=== PATIENT | female | born 1985 | race American Indian/Alaskan Native ===

== ENCOUNTER 2018-12-27 21:29 | Emergency (ER) | payer MEDICAID ==
[2018-12-27 22:47] VITALS: BP 132/72
--- NOTE | 2018-12-27 22:48 | Event Note ---
ED Screening Note Date of service: 12/27/18 Time: 22:46 ED Screening Note: 33 y/o female comes in for dysuria, frequency and urgency. diagnostic orders/clinical plan/treatment(s) is/are subject to change based on patients health status, clinical progression and re-assessment by fellow clinical providers in the ED. Further treatment and workup at subsequent clinical providers discretion. Patient/guardian urged not to elope from the ED as their condition may be serious if not clinically assessed and managed. Initial orders include:
[2018-12-28 01:45] LABS: Bacteria,Urine 4+ /HPF (Negative); Bilirubin,Urine NEG (Negative); Blood,Urine NEG (Negative); Color,Urine Yellow (Yellow); Mucus,Urine 3+ /HPF; Protein,Urine <15 mg/dL mg/dL (Negative); Sperm,Urine FEW /HPF (NP); Urobilinogen,Urine < 2.0 mg/dL (<2.0)
== END 2018-12-28 01:14 | disposition left against medical advice (07) ==
LOC: ED 21:29
DX: R31.9 Hematuria, unspecified (principal); Z53.21 Procedure and treatment not carried out due to patient leaving prior to being seen by health care provider
CPT/HCPCS: 81001; 87076; 87086; 87186